=== PATIENT | male | born 1960 | race Caucasian/White ===

== ENCOUNTER 2024-12-17 08:03 | Day surgery (SDC) | payer BC, MEDICARE, OTHER ==
[~2024-12-17 08:03] MED LIST: Lactated Ringers 1,000 ML IV PRN
[2024-12-17] MEDS ORDERED: Midazolam 1 MG/ML 2 ML SDV IV ONE (08:04)
[2024-12-17] MEDS ORDERED: fentaNYL 100 MCG/2 ML SDV IV ONE (08:04)
[2024-12-17] MEDS: Sodium Chloride 0.9% 10 ML Syringe FLUSH PRN (08:40)
[2024-12-17] MEDS: acetaZOLAMIDE 500 MG Cap.ER PO ONE (10:19)
== END 2024-12-17 10:28 | disposition home or self-care (01) ==
LOC: FB.SDS 08:03
PROVIDERS: ATTEND Ophthalmology
DX: H25.813 Combined forms of age-related cataract, bilateral (principal); I10 Essential (primary) hypertension; E66.9 Obesity, unspecified; E78.00 Pure hypercholesterolemia, unspecified; Z79.899 Other long term (current) drug therapy; Z79.82 Long term (current) use of aspirin; Z87.891 Personal history of nicotine dependence; Z68.39 Body mass index [BMI] 39.0-39.9, adult
CPT/HCPCS: 00142; A9270-GY; J2250; J3010; V2632

== ENCOUNTER 2024-12-31 07:34 | Day surgery (SDC) | payer MEDICARE ==
[2024-12-31] MEDS ORDERED: Midazolam 1 MG/ML 2 ML SDV IV ONE (07:35)
[2024-12-31] MEDS ORDERED: Sodium Chloride 0.9% 10 ML Syringe IV ONE (07:35)
[2024-12-31] MEDS ORDERED: fentaNYL 100 MCG/2 ML SDV IV ONE (07:35)
[2024-12-31] MEDS: Sodium Chloride 0.9% 10 ML Syringe FLUSH PRN (07:54)
[2024-12-31] MEDS: acetaZOLAMIDE 500 MG Cap.ER PO ONE (09:30)
== END 2024-12-31 09:50 | disposition home or self-care (01) ==
LOC: FB.SDS 07:34
PROVIDERS: ATTEND Ophthalmology
DX: H26.9 Unspecified cataract (principal); H21.81 Floppy iris syndrome; I10 Essential (primary) hypertension; E66.9 Obesity, unspecified; Z79.82 Long term (current) use of aspirin; Z68.39 Body mass index [BMI] 39.0-39.9, adult; Z87.891 Personal history of nicotine dependence; Z79.899 Other long term (current) drug therapy
CPT/HCPCS: 00142; A9270-GY; J2250; J3010; V2632